=== PATIENT | male | born 1990 | race Caucasian/White ===

== ENCOUNTER → 2021-01-27 07:49 | Outpatient (CLI) | payer SELFPAY ==
--- NOTE | 2021-01-27 07:54 | US_ITS ---
STUDY: ABDOMINAL ULTRASOUND - RIGHT UPPER QUADRANT REASON FOR VISIT: Male, 30 years old R/O CHOLELITHIASIS -- RT ABD PAIN X 1 1/2 YEARS TECHNIQUE: Ultrasound evaluation of the right upper quadrant was performed with real-time and static nance-scale imaging. TECHNICAL QUALITY: Adequate. COMPARISON: None. FINDINGS: Liver: The liver measures 17.2 cm. There is normal echogenicity of the liver. The bile ducts are within normal limits. There is hepatic color flow. The direction of portal flow is hepatopetal. There is no demonstrated mass lesion. Gallbladder: Normal distended gallbladder. The gallbladder wall measures 1.4 mm. There is a negative sonographic Trejo''s sign. There is no pericholecystic fluid. There are no gallstones. Common Bile Duct (C.B.D.): The common bile duct measures 2.6 mm. Pancreas: Normal size of the head, body and tail of the pancreas. There is normal echogenicity of the pancreas. There is no demonstrated pancreatic mass or cyst. Right Kidney: Normal size of the right kidney. The right kidney measures 9.9 cm x 6.3 cm x 6.5 cm. Normal renal cortex. The right cortex measures 1.9 cm. There is no demonstrated renal mass or cyst. There is no right hydronephrosis. US/Gallbladder IMPRESSION: Normal right upper quadrant ultrasound examination. Electronically Signed: Bala Tony MD at 13:05 EST , Service support ,
== END ==
PROVIDERS: PCP Family Medicine; Referring Provider Nurse Practitioner Family; Visit Provider Nurse Practitioner Family
DX: R10.9 Unspecified abdominal pain (principal)
CPT/HCPCS: 76705

== ENCOUNTER 2021-06-10 14:38 | Emergency (ER) | payer SELFPAY ==
[2021-06-10 14:39] VITALS: BP 152/82; PULSE 99; RESP 14; TEMP 36.8; O2SAT 100; BMI 24.5
--- NOTE | 2021-06-10 14:59 | EDS_ITS ---
HPI HPI - GI History of Present Illness Chief Complaint: Abd Pain Narrative Narrative: 31-year-old male with history of hiatal hernia presenting with epigastric pain which is present throughout the day today. He states he ate grape nuts for breakfast and then noodles for lunch. He states he took ibuprofen that did not initially help but usually does. He debated on whether to come to the emergency room and as he arrived he states the pain is completely resolved. He currently has no nausea, vomiting. Has not had diarrhea. States has not had a bowel movement today but had normal bowel movement yesterday. No fever or chills. No urinary complaints. No chest pain or shortness of breath. [facility] Medical History Dizziness Gastritis Hiatal hernia History of Lyme disease (09/27/20) History of myocarditis (2013) Hyperlipidemia Near syncope Sinus tachycardia Tobacco abuse Home Medications pantoprazole [Protonix] 40 mg PO DAILY #30 tab 06/10/21 [Rx Last Taken Unknown] sucralfate [Carafate] 1 g PO BID PRN #400 ml 06/10/21 [Rx Last Taken Unknown] Allergy/AdvReac Type Severity Reaction Status Date / Time No Known Allergies Allergy Verified 06/10/21 14:39 Family History Uncle Myocardial infarction, Onset Age: 40 CABG early 40's and from [place] age 45 maternal CAD (coronary artery disease), Onset Age: 40 Grandmother Myocardial infarction, Onset Age: 55 paternal Surgical History History of esophagogastroduodenoscopy (EGD) (01/2021) Social History Smoking Status: Former smoker quit date: 03/03/21 Smokeless tobacco user: chewing tobacco alcohol intake: former details: Quit 1.5 years ago drank 1 case beer daily caffeine: Yes Type: coffee Number of servings: 1 ROS ROS ED Constitutional Constitutional ED: Denies chills or fever(s) ENT ENT ED: Denies rhinorrhea or sore throat Cardiovascular Cardiovascular: Denies chest pain or palpitations Respiratory/Chest Respiratory/Chest: Denies cough or dyspnea Gastrointestinal Gastrointestinal: Reports abdominal pain and nausea; Denies constipation, diarrhea or vomiting Genitourinary Genitourinary ED: Denies dysuria Musculoskeletal Musculoskeletal: Denies arthralgias or myalgias Integumentary Denies rash Neurologic Neurologic: Denies headache(s) or weakness Psychiatric Psychiatric: Denies anxiety or depression EXAM Physical Exam Const Vital Signs: 06/10/21 14:39 Temperature 98.2 F Temperature Source Temporal Pulse Rate 99 Respiratory Rate 14 Blood Pressure 152/82 H Blood Pressure Mean 105 Pulse Ox 100 Oxygen Delivery Method Room Air Positive well nourished General Appearance ED: NAD; Negative for pallor HEENT Reports moist mucous membranes normocephalic Eyes PERRL and EOMs intact bilaterally General Eye ED: Negative for pale conjunctiva or scleral icterus Resp normal respiratory effort and clear to auscultation bilaterally Cardio regular rate and regular rhythm GI non-tender, non-distended and no masses Auscultation: normoactive bowel sounds Palpation: soft Extremity full ROM General Extremety ED: Negative for edema General Extremity: Negative for edema Neuro CN's II-XII intact bilaterally Sensorium / Orientation: alert, oriented to person, oriented to place and oriented to time Motor Exam: strength 5/5 throughout Psych mental status grossly normal and thought process normal Skin General Skin Exam: Negative for jaundice or pallor Lesions: no lesions Rashes: no rashes MDM MDM MDM Narrative Medical decision making narrative: Patient completely pain-free on examination. Vital signs are stable he is afebrile. Currently has no symptoms. He took ibuprofen prior to arrival and believes this helped. He had a recent scope by his GI doctor. He is not on a PPI but he does state that today has had some burning in his epigastrium. He does report that he ate pizza over the weekend which sometimes sets him off. I do not believe he needs blood work or imaging at this time. I will start him on a PPI and given Carafate as needed. He is given return precautions. Impression: 1. Epigastric pain 2. History of hiatal hernia Discharge Plan Triage Chief Complaint: Abd Pain ED Provider: Isai Byrnes Dx/Rx/DC Orders Instructions: ED Hiatal Hernia Prescriptions: New pantoprazole [Protonix] 40 mg tablet,delayed release (DR/EC) 40 mg PO DAILY Qty: 30 RF: 0 sucralfate [Carafate] 100 mg/mL suspension 1 g PO BID PRN (Reason: epigastric pain) Qty: 400 RF: 0 Primary Care Provider: Warren Smith Referrals: Warren Smith DO [Primary Care Provider] - Disposition Disposition: Home, Self Care
== END 2021-06-10 15:21 | disposition home or self-care (01) ==
LOC: ED 15:13
PROVIDERS: Emergency Provider Student in an Organized Health Care Education/Training Program; PCP Family Medicine; Visit Provider Student in an Organized Health Care Education/Training Program
DX: R10.13 Epigastric pain (principal); Z87.891 Personal history of nicotine dependence; Z87.19 Personal history of other diseases of the digestive system; R11.0 Nausea
CPT/HCPCS: 99282